=== PATIENT | male | born 1980 | race Caucasian/White ===

== ENCOUNTER 2022-12-05 20:04 | Emergency (ER) | payer SELFPAY ==
[2022-12-05 20:35] VITALS: BP 133/84; PULSE 85; RESP 16; TEMP 36.6; O2SAT 99
== END 2022-12-05 23:30 | disposition left against medical advice (07) ==
LOC: ED 23:26
PROVIDERS: Emergency Provider Family Medicine
DX: Z53.21 Procedure and treatment not carried out due to patient leaving prior to being seen by health care provider (principal)
CPT/HCPCS: 80048; 81001; 85025